=== PATIENT | female | born 1970 | race Caucasian/White ===

== ENCOUNTER → 2021-01-07 | Outpatient (CLI) | payer OTHER | LOC: KOH-I 09:02 | DX: M51.26 Other intervertebral disc displacement, lumbar region (principal); M51.36 Other intervertebral disc degeneration, lumbar region; M48.061 Spinal stenosis, lumbar region without neurogenic claudication | CPT/HCPCS: 72148 ==

== ENCOUNTER → 2021-03-31 | Outpatient (CLI) | payer OTHER | LOC: KOH-I 09:52 | DX: M47.9 Spondylosis, unspecified (principal); M50.322 Other cervical disc degeneration at C5-C6 level; M51.34 Other intervertebral disc degeneration, thoracic region | CPT/HCPCS: 72100; 72141; 72146 ==

== ENCOUNTER 2022-01-04 14:04 | Emergency (ER) | payer OTHER ==
[2022-01-04 14:46] LABS: HEMOGLOBIN 15.3 gm/dl (12.3-15.3); RED BLOOD COUNT 5.1 M/UL (4.00-5.10)
== END 2022-01-04 16:18 | disposition home or self-care (01) ==
LOC: ER1 14:04
PROVIDERS: Nurse Practitioner
DX: U07.1 COVID-19 (principal)
CPT/HCPCS: 0240U; 71045; 80053; 81001; 82550; 82553; 83735; 84100; 84484; 85025; 93005; 99285